=== PATIENT | male | born 1960 | race Caucasian/White ===

== ENCOUNTER 2017-03-01 12:03 | Emergency (ER) | payer MEDICARE ==
--- NOTE | ~2017-03-01 | CT71 ---
[facility] A Service [facility] RADIOLOGY TEXT RESULTS PATIENT: LYNN GATES LOCATION: SED : 62 UNIT #: [id number] AGE: [address]: Salazar Centeno MD SEX: M ORDER DR: [id number] [place] [id number] E MR#: [id number] Acc #: [id number] NAME: LYNN GATES : 1960 SEX: M STUDY DATE/TIME: 03/01/2017 11:41 UNIT: SED ROOM: STUDY DESCRIPTION: CT Head Wo Contrast Attending Physician: Salazar Centeno M.D. Referring Physician: Salazar Centeno M.D. Ordering Physician: Salazar Centeno M.D. Primary Care Physician: Hari Roque M.D. MEDICAL IMAGING REPORT This report is preliminary unless electronic signature is present. EXAM CT head without contrast, 03/01/2017 HISTORY 57-year-old male with left-sided head pain status post fall today. COMPARISON CT head 11/06/2015 TECHNIQUE Routine unenhanced axial images performed through the brain. This CT exam was performed with one or more of the following radiation dose reduction techniques: automatic exposure control, adjustment of mA and/or kV according to patient size, and iterative reconstruction. FINDINGS No hemorrhage, acute infarction, mass lesion, or abnormal extraaxial fluid collection. No midline shift or focal mass effect. Ventricular system is normal in size and configuration. No acute bony abnormality. Minimal mucosal thickening bilateral maxillary sinuses. Visualized mastoid air cells are clear. IMPRESSION 1. No acute intracranial abnormality. 2. Minimal mucosal thickening visualized bilateral maxillary sinuses. Dictated by... Joshua Lara M.D. [facility] A Service [facility] RADIOLOGY TEXT RESULTS PATIENT: LYNN GATES LOCATION: SED : 62 UNIT #: [id number] AGE: [address]: Salazar Centeno MD SEX: M ORDER DR: THIS IS AN ELECTRONICALLY VERIFIED REPORT Joshua Lara M.D. at 03/02/2017 8:44 AM BOYD/mia TD: 03/01/2017 23:03 JOB #: [id number] MEDICAL IMAGING REPORT Page 1 of 1
[~2017-03-01 12:03] MED LIST: ADDERALL 15 MG15 M1 PO; ALPRAZOLAM ER2 MG PO; ALPRAZOLAM ODT0.5 MG PO; COUMADIN1 MG PO; FLEXERIL10 MG PO; GABITRIL4 MG PO; JUBLIA4 ML TOP; LAMISIL250 MG PO; MONTELUKAST SOD10 MG PO; NORVIR100 M1 PO; PRAZOSIN HCL5 MG PO; PREZISTA800 MG PO; PROAIR HFA8.5 GM INH; QVAR7.3 G1 INH; REMERON SOLTAB15 MG PO; REMERON30 MG PO; SEREVENT D50 MCG/DIS INH; SERTRALINE HCL100 M1 PO; SYNTHROID0.05 MG PO; TOPAMAX50 MG PO; TRUVADA 200 MG1 EACH PO; VYVANSE60 MG PO; XOPENEX0.63 MG/3 INH
== END 2017-03-01 12:53 | disposition home or self-care (01) ==
LOC: SED 12:03
DX: S01.111A Laceration without foreign body of right eyelid and periocular area, initial encounter (principal); S01.81XA Laceration without foreign body of other part of head, initial encounter; S09.90XA Unspecified injury of head, initial encounter; Z21 Asymptomatic human immunodeficiency virus [HIV] infection status; Z79.899 Other long term (current) drug therapy; W01.0XXA Fall on same level from slipping, tripping and stumbling without subsequent striking against object, initial encounter; Y92.009 Unspecified place in unspecified non-institutional (private) residence as the place of occurrence of the external cause
CPT/HCPCS: 12011; 70450; 99284